=== PATIENT | female | born 1980 | race Asian ===

== ENCOUNTER 2018-05-31 08:27 | Inpatient (IN) | payer SELFPAY ==
[~2018-05-31] VITALS: Ht 168 cm; Wt 75.0 kg
[2018-06-01] MEDS ORDERED: OXYTOCIN 10 UNITS/ML VIAL IM SCH (01:15)
[2018-06-01] MEDS ORDERED: LACTATED RINGERS 500 ML IV ONE (01:15)
[2018-06-01] MEDS ORDERED: OXYTOCIN 20 UNITS in LACTATED RINGERS 1,000 ML IV SCH (01:20)
[2018-06-01] MEDS ORDERED: MISOPROSTOL 25 MCG TAB VG PRN (01:20)
[2018-06-01 02:00] VITALS: BP 95/60
[2018-06-01] MEDS ORDERED: MISOPROSTOL 25 MCG TAB ONE (02:34)
[2018-06-01] MEDS: LACTATED RINGERS 1,000 ML IV SCH ×4 (02:53→12:20)
[2018-06-01 03:38] LABS: BASOPHILS % (AUTO) 0.3 % (0.0-2.0); EOSINOPHILS # (AUTO) 0.1 K/uL (0-0.4); EOSINOPHILS % (AUTO) 0.6 % (0.0-4.0); HEMATOCRIT 35.1 % (36-48); LYMPHOCYTES # (AUTO) 1.3 K/uL (2.5-16.5); LYMPHOCYTES % (AUTO) 15.7 % (20.5-51.1); MEAN CORPUSCULAR HEMOGLOBIN 34 pg (27-31); MEAN CORPUSCULAR HGB CONC 34 g/dL (33-37); MEAN CORPUSCULAR VOLUME 98.9 fL (80-94); MONOCYTES # (AUTO) 0.6 K/uL (0.8-1.0); MONOCYTES % (AUTO) 7.2 % (1.7-9.3); NEUTROPHILS # (AUTO) 6.1 K/uL (1.8-7.7); NEUTROPHILS % (AUTO) 76.2 % (42.2-75.2); PLATELET COUNT (AUTO) 153 K/uL (140-450); RED BLOOD CELL COUNT(AUTO) 3.55 MIL/uL (4.20-5.40); RED CELL DISTRIBUTION WIDTH 14.5 % (11.6-13.7)
[2018-06-01 03:50] LABS: APPEARANCE,URINE HAZY (CLEAR); BILIRUBIN,URINE NEGATIVE (NEGATIVE); BLOOD, URINE NEGATIVE (NEGATIVE); COLOR,URINE YELLOW (YELLOW); LEUKOCYTE ESTERASE ,URINE TRACE (NEGATIVE); NITRITE, URINE NEGATIVE (NEGATIVE); PH,URINE 6.5 (5.0-9.0); UGLUCOSE NEGATIVE (NEGATIVE)
[2018-06-01] MEDS ORDERED: PREN-546 PO (04:02)
[2018-06-01] MEDS ORDERED: FERR-252 PO (04:02)
[2018-06-01 04:22] LABS: RBC,URINE 0-5 (RARE) /HPF (0-5)
[2018-06-01] MEDS ORDERED: OXYTOCIN 20 UNITS/LR PREMIX 1,000 ML IV ONE (06:07)
[2018-06-01] MEDS ORDERED: HYDROcodone/APAP 5/325 MG 1 TAB TAB PO PRN (06:10)
[2018-06-01] MEDS ORDERED: MEASLES, MUMPS, AND RUBELLA 1 VIAL SQVAC PRN (06:10)
[2018-06-01] MEDS ORDERED: OXYTOCIN 10 UNITS/ML VIAL IM PRN (06:10)
[2018-06-01] MEDS ORDERED: oxyCODONE/APAP 5/325 MG 1 TAB TAB PO PRN (06:10)
[2018-06-01] MEDS ORDERED: METHYLERGONOVINE 0.2 MG/ML AMP IM PRN (06:10)
[2018-06-01] MEDS ORDERED: TEMAZEPAM 15 MG CAP PO PRN (06:10)
[2018-06-01] MEDS ORDERED: IBUPROFEN 800 MG TAB PO PRN (06:10)
[2018-06-01] MEDS ORDERED: BENZOCAINE/MENTHOL 20%-0.5% 60 GM CAN TP PRN (06:10)
[2018-06-01] MEDS ORDERED: ROPIVACAINE 0.2%/NS PREMIX 250 ML EPI ONE (07:22)
--- NOTE | 2018-06-01 08:06 | NUR ---
PATIENT HAS BEEN SCREENED AND CATEGORIZED LOW NUTRITION RISK. PATIENT WILL BE SEEN WITHIN 7 DAYS OF ADMISSION. 06/07/[address]
[2018-06-01] MEDS ORDERED: ROPIVACAINE 0.2%/NS PREMIX 250 ML EPI SCH (08:10)
[2018-06-01] MEDS ORDERED: AMPICILLIN 2,000 MG in NACL 0.9% 100 ML IV ONE (15:35)
[2018-06-01] MEDS ORDERED: AMPICILLIN 2,000 MG VIAL ONE (15:42)
[2018-06-01] MEDS ORDERED: OXYTOCIN 10 UNITS/ML VIAL ONE (18:06)
[2018-06-01] MEDS ORDERED: METHYLERGONOVINE 0.2 MG/ML AMP ONE (18:38)
[2018-06-01] MEDS ORDERED: DOCUSATE SOD/SENNA 50/8.6 MG 1 TAB PO SCH (21:00)
[2018-06-02 08:53] LABS: HEMATOCRIT 30.6 % (36-48); HEMOGLOBIN 10.5 g/dL (12.0-16.0)
== END 2018-06-03 13:45 | disposition home or self-care (01) | DRG 775 ==
LOC: MLD 06-01 00:29 → MFCC 06-01 21:41
PROVIDERS: ADMIT Obstetrics & Gynecology; ATTEND Obstetrics & Gynecology
PROC: 10E0XZZ Delivery of Products of Conception, External Approach (ICD-10-PCS; principal; 2018-06-01)
PROC: 10907ZC Drainage of Amniotic Fluid, Therapeutic from Products of Conception, Via Natural or Artificial Opening (ICD-10-PCS; 2018-06-01)
PROC: 0HQ9XZZ Repair Perineum Skin, External Approach (ICD-10-PCS; 2018-06-01)
PROC: 00HU33Z Insertion of Infusion Device into Spinal Canal, Percutaneous Approach (ICD-10-PCS; 2018-06-01)
PROC: 3E0R3BZ Introduction of Anesthetic Agent into Spinal Canal, Percutaneous Approach (ICD-10-PCS; 2018-06-01)
PROC: 3E0234Z Introduction of Serum, Toxoid and Vaccine into Muscle, Percutaneous Approach (ICD-10-PCS; 2018-06-03)
DX: O69.81X0 Labor and delivery complicated by cord around neck, without compression, not applicable or unspecified (principal); Z37.0 Single live birth; O48.0 Post-term pregnancy; O70.0 First degree perineal laceration during delivery; Z3A.40 40 weeks gestation of pregnancy; Z23 Encounter for immunization
CPT/HCPCS: 36415; 51702; 59200; 59409; 81001; 85018; 85025; 86592; 86886; 86900; 86901; 87086; 90715; J0290; J2210; J2590; J2795; J7120